=== PATIENT | male | born 1980 | race Caucasian/White ===

== ENCOUNTER 2022-02-22 00:07 | Emergency (ER) | payer SELFPAY ==
[~2022-02-22] VITALS: Ht 185.4 cm; Wt 94.1 kg
[2022-02-22 00:30] VITALS: BP 113/74
[2022-02-22] MEDS ORDERED: KETOROLAC 60MG/2ML VIAL IM STA (02:11)
[2022-02-22] MEDS ORDERED: IBUP-2029 PO (05:21)
== END 2022-02-22 05:35 | disposition home or self-care (01) ==
LOC: ER 00:07
DX: S63.591A Other specified sprain of right wrist, initial encounter (principal); M25.531 Pain in right wrist; W18.39XA Other fall on same level, initial encounter; Y93.89 Activity, other specified; Y92.89 Other specified places as the place of occurrence of the external cause; Y99.8 Other external cause status
CPT/HCPCS: 29125; 73110; 73130; 96372; 99284; J1885

== ENCOUNTER 2023-08-22 04:14 | Emergency (ER) | payer SELFPAY ==
[~2023-08-22] VITALS: Ht 185.4 cm; Wt 86.0 kg
[~2023-08-22 04:14] MED LIST: IBUP-2029 PO
[2023-08-22 04:50] VITALS: BP 107/63; PULSE 100; RESP 18; TEMP 97.8; O2SAT 100
[2023-08-22] MEDS: BACITRACIN ZINC OINT UDPKT TOP ONE (05:45)
[2023-08-22] MEDS: LIDOCAINE HCL/PF 1% 10 MG/ML 5ML VIAL INFIL ONE (05:45)
[2023-08-22] MEDS ORDERED: SULF1TAB48 MT (06:01)
[2023-08-22] MEDS ORDERED: CEPH500C2 MT (06:01)
== END 2023-08-22 06:41 | disposition home or self-care (01) ==
LOC: ER 04:47
DX: L02.11 Cutaneous abscess of neck (principal); Z88.0 Allergy status to penicillin
CPT/HCPCS: 99283; 10060; J3490

== ENCOUNTER 2024-01-14 14:11 | Emergency (ER) | payer MEDICAID ==
[~2024-01-14] VITALS: Ht 180.3 cm; Wt 75.0 kg
[~2024-01-14 14:11] MED LIST changes: +CEPH500C2 MT; +SULF1TAB48 MT
[2024-01-14 14:48] VITALS: O2SAT 98
[2024-01-14] MEDS ORDERED: CLIN-194 MT (18:17)
[2024-01-14] MEDS ORDERED: IBUP-2029 MT (18:17)
[2024-01-14] MEDS ORDERED: MUPI1OIN4 TP (18:17)
[2024-01-14] MEDS: IBUPROFEN 600MG TABLET PO ONE (18:29)
[2024-01-14] MEDS: LIDOCAINE HCL/PF 1% 10 MG/ML 5ML VIAL INFIL ONE (18:29)
[2024-01-14 18:30] VITALS: BP 122/74; PULSE 61; RESP 17; TEMP 37.00296; O2SAT 100
== END 2024-01-14 20:26 | disposition home or self-care (01) ==
LOC: ER 14:11
DX: L02.212 Cutaneous abscess of back [any part, except buttock and flank] (principal); Z88.0 Allergy status to penicillin; Z79.899 Other long term (current) drug therapy
CPT/HCPCS: 10060; 99283; J3490; Z7610 ×2

== ENCOUNTER 2024-11-17 15:21 | Emergency (ER) | payer MEDICAID ==
[~2024-11-17] VITALS: Ht 185.4 cm; Wt 82.0 kg
[~2024-11-17 15:21] MED LIST changes: +CLIN-194 MT; +IBUP-2029 MT; +MUPI1OIN4 TP
[2024-11-17 15:34] VITALS: O2SAT 97
[2024-11-17] MEDS ORDERED: CLIN-116 MT (17:20)
[2024-11-17 17:25] VITALS: BP 118/66; PULSE 66; RESP 14; TEMP 36.5; O2SAT 100
== END 2024-11-17 17:34 | disposition home or self-care (01) ==
LOC: ER 15:21
DX: L03.011 Cellulitis of right finger (principal); Z79.899 Other long term (current) drug therapy; Z88.0 Allergy status to penicillin
CPT/HCPCS: 99283